=== PATIENT | female | born 1965 | race Caucasian/White ===

== ENCOUNTER 2017-07-29 17:44 | Inpatient (IN) | payer SELFPAY ==
[2017-07-29] MEDS ORDERED: NS 1,000 ML IV ONE (17:49)
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
[2017-07-29] MEDS ORDERED: ONDANSETRON 4 MG/2 ML VIAL IVP ONE (17:59)
[2017-07-29 18:07] LABS: % IMMATURE GRANULYOCYTES 1.1 % (0.0-1.1); ABSOLUTE IMMATURE GRANULOCYTES 0.06 10^3/uL (0.00-0.10); ADD DIFF? NO; ADD MORPH? NO; ADD SCAN? NO; ATYPICAL LYMPHOCYTE FLAG 0 (0-99); FRAGMENT RBC FLAG 0 (0-99); HEMATOCRIT 41.9 % (38.0-47.0); HEMOGLOBIN 14.4 g/dL (12.6-16.3); LEFT SHIFT FLG 10 (0-99); LIPEMIA HEMOLYSIS FLAG 90 (0-99); MEAN CELL HEMOGLOBIN 30.1 pg (27.9-34.1); MEAN CELL HEMOGLOBIN CONCENTR. 34.4 g/dL (32.4-36.7); MEAN CELL VOLUME 87.7 fL (81.5-99.8); MEAN PLATELET VOLUME 10.2 fL (8.7-11.7); PLATELET CLUMPS FLAG 0 (0-99); PLATELET COUNT 230 10^3/uL (150-400); RED BLOOD CELL COUNT 4.78 10^6/uL (4.18-5.33); RED CELL DISTRIBUTION WIDTH 12.9 % (11.5-15.2)
[2017-07-29 18:15] LABS: APTT 25.2 SEC (23.0-38.0); PROTIME(PATIENT) 13.1 SEC (12.0-15.0)
[2017-07-29 18:16] LABS: ANION GAP 14 mEq/L (8-16); CALCIUM 9.1 mg/dL (8.5-10.4); CARBON DIOXIDE 21 mEq/l (22-31); CHLORIDE 106 mEq/L (97-110); CREATININE 0.9 mg/dL (0.6-1.0); ETHANOL SERUM < 10 mg/dL (0-10); GLOMERULAR FILTRATION RATE > 60; GLUCOSE 109 mg/dL (70-100); POTASSIUM 4.4 mEq/L (3.5-5.2); SODIUM 141 mEq/L (134-144)
[2017-07-29] MEDS ORDERED: METOCLOPRAMIDE 10 MG/2 ML VIAL ONE (18:21)
[2017-07-29] MEDS ORDERED: METOCLOPRAMIDE 10 MG/2 ML VIAL IVP ONE (18:33)
[2017-07-29] MEDS ORDERED: NALOXONE HCL 0.4 MG/ML INJ IVP PRN (19:08)
[2017-07-29] MEDS ORDERED: ONDANSETRON DISINTEGRATING 4 MG TAB PO PRN (19:08)
--- NOTE | 2017-07-29 19:08 | PDCONSULT ---
Rn Cardiac Cath Note: Dictated # [id number] S MD Sami, FACS
[2017-07-29] MEDS ORDERED: IOPAMIDOL (ISOVUE-300) 100 ML BTL ONE (19:09)
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
[2017-07-29] MEDS: FAMOTIDINE 20 MG/NACL 50 ML IV SCH (22:33)
[2017-07-30] MEDS: ONDANSETRON 4 MG/2 ML VIAL IVP PRN ×3 (04:24→19:50)
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
[2017-07-30] MEDS ORDERED: METOCLOPRAMIDE 10 MG/2 ML VIAL IVP PRN (05:58)
[2017-07-30] MEDS ORDERED: METOCLOPRAMIDE 10 MG/2 ML VIAL ONE (06:01)
[2017-07-30] MEDS: FAMOTIDINE 20 MG/NACL 50 ML IV SCH ×2 (07:53→20:05)
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
[2017-07-31 04:23] VITALS: TEMP 97.8
[2017-07-31] MEDS: ONDANSETRON 4 MG/2 ML VIAL IVP PRN (07:29)
[2017-07-31 10:00] VITALS: BP 135/70; PULSE 79; RESP 16; O2SAT 98
[2017-07-31] MEDS ORDERED: HYDROCODONE/APAP 5/325 TAB PO PRN (10:33)
[2017-07-31] MEDS ORDERED: ACETAMINOPHEN 325 MG TAB PO PRN (10:33)
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
[2017-07-31] MEDS: FAMOTIDINE 20 MG/NACL 50 ML IV SCH (10:50)
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
== END 2017-07-31 12:30 | disposition home or self-care (01) | DRG 83 ==
LOC: F2N 21:45 → OBSVTOIN 07-30 10:30
PROVIDERS: ADMIT Surgery; ATTEND Surgery
PROC: 0HQ0XZZ Repair Scalp Skin, External Approach (ICD-10-PCS; principal; 2017-07-30)
DX: S06.5X9A Traumatic subdural hemorrhage with loss of consciousness of unspecified duration, initial encounter (principal); S06.6X9A Traumatic subarachnoid hemorrhage with loss of consciousness of unspecified duration, initial encounter; S22.43XA Multiple fractures of ribs, bilateral, initial encounter for closed fracture; S02.119A Unspecified fracture of occiput, initial encounter for closed fracture; S01.01XA Laceration without foreign body of scalp, initial encounter; V01.10XA Pedestrian on foot injured in collision with pedal cycle in traffic accident, initial encounter; Y92.414 Local residential or business street as the place of occurrence of the external cause; R40.2412 Glasgow coma scale score 13-15, at arrival to emergency department; I10 Essential (primary) hypertension; E66.9 Obesity, unspecified; Z68.33 Body mass index [BMI] 33.0-33.9, adult
CPT/HCPCS: 92523-GN; 96374; 97116-GP; 97161-GP; 97166-GO; 97530-GP; 97535-GO; G0480; J1200; J2405; J2765; Q9967